=== PATIENT | female | born 1950 | race Caucasian/White ===

== ENCOUNTER → 2020-08-19 | Outpatient (CLI) | payer OTHER ==
[~2020-08-19] MED LIST: ALLOPURINOL100 MG PO; ALLOPURINOL300 MG PO; AMLODIPINE BESYL5 MG PO; ASPIR-LOW81 MG PO; CRESTOR20 MG PO; CYCLOBENZAPRINE5 MG PO; DITROPAN XL10 MG PO; ELIQUIS 2.5 MG2.5 MG PO; ELIQUIS2.5 MG PO; FUROSEMIDE20 MG PO; GABAPENTIN400 MG PO; HUMALOG 10100 UNITS/ SC; HYDROCODON-ACE1 EAC2 PO; INDERAL TAB 1010 MG PO; IPRAT-ALBUT 0.5-3 ML INH; IRON325 M1 PO; JANUMET 50-5001 EACH PO; LANTUS100 UNIT/1 SQ; LEVAQUIN500 MG PO; LEVOTHYROXINE75 MCG PO; LOSARTAN POTASS50 MG PO; MAGNESIUM400 MG PO; NOVOLOG FL100 UNIT/1 INJ; PAXIL30 MG PO; PERCOCET 10-321 EACH PO; PERCOCET 7.5-31 EACH PO; POLYETHYLENE GL17 GM PO; POTASSIUM CHLO10 MEQ PO; RANITIDINE HCL300 MG PO; ROPINIROLE HCL2 MG PO; SINGULAIR10 MG PO; TOUJEO MAX300 UNIT/1 SQ; TRAZODONE HCL50 MG PO; VITAMIN B-122500 MCG SL; VITAMIN C500 M1 PO; VITAMIN D 40400 UNIT PO; VITAMIN D2400 UNIT PO
== END ==
LOC: KOH-I 07-31 10:00
DX: M25.552 Pain in left hip (principal); G89.29 Other chronic pain; S72.92XA Unspecified fracture of left femur, initial encounter for closed fracture; S32.10XA Unspecified fracture of sacrum, initial encounter for closed fracture; Z98.890 Other specified postprocedural states; X58.XXXA Exposure to other specified factors, initial encounter
CPT/HCPCS: 73700